=== PATIENT | male | born 1945 | race Caucasian/White ===

== ENCOUNTER → 2023-12-18 12:52 | Outpatient (CLI) | payer MEDICARE, SELFPAY ==
--- NOTE | 2023-12-18 12:57 | DI.CT.S_ITS ---
PROCEDURE: CT SINUS SCREEN WO CON INDICATIONS: CHRONIC PANSINUSITIS,FACIAL PAIN,HX SINUS SURGERY TECHNIQUE: Noncontrast 3.0 mm axial images acquired from the frontal sinuses to the mid-sella, with coronal and sagittal reformats. For radiation dose reduction, the following was used: automated exposure control, adjustment of mA and/or kV according to patient size. COMPARISON: None. FINDINGS: Image quality: Excellent. Maxillary Sinuses: Mild mucosal thickening is seen inferiorly, right worse than left. There is removal of portions of the superior medial quach of the maxillary sinuses. Ethmoid Air Cells: No bony remodeling or destruction. Mild mucosal thickening is seen anteriorly. Sphenoid Sinuses: No bony remodeling or destruction. Sinuses are clear. Frontal Sinuses: No bony remodeling or destruction. Mild mucosal thickening can be seen within the inferior medial frontal sinuses. Ostiomeatal Complexes: Removed. Miscellaneous: Visualized intra-orbital contents are normal. There are small bilateral em bullosa. No nasal septal deviation. IMPRESSION: Scattered mild paranasal sinus disease can be seen. Prior postoperative change, with bilateral antrectomy. Dictated by: Willem Garcai M.D. on 12/18/2023 at 14:18 Approved by: Willem Garcia M.D. on 12/18/2023 at 14:20
== END ==
LOC: CT 12:55
PROVIDERS: Referring Provider Otolaryngology; Visit Provider Otolaryngology
DX: J32.4 Chronic pansinusitis (principal); R51.9 Headache, unspecified; J34.3 Hypertrophy of nasal turbinates; Z98.890 Other specified postprocedural states
CPT/HCPCS: 70486

== ENCOUNTER 2024-04-10 06:45 | Day surgery (SDC) | payer MEDICARE, SELFPAY ==
--- NOTE | 2024-04-10 | PATH_ITS ---
[facility] Accession Number: [id number] No. of containers..01 Tissue . 01 Material submitted: . stomach - ANTRUM . 01 Diagnosis: ANTRUM: Gastric antral mucosa with no diagnostic alterations. No Helicobacter organisms identified on H/E stain. No intestinal metaplasia, dysplasia, or malignancy identified. [facility] 04/11/20241320 Local . 01 Electronically signed: . Chuckie Quintero MD, Pathologist NPI- [id number] . 01 Gross description: . ANTRUM: Received in formalin are 4 fragment(s) of piper, soft tissue measuring 0.2 x 0.2 x 0.2 cm to 0.4 x 0.2 x 0.2 cm submitted entirely in 1 cassette(s) /VY 04/11/20241320 Local . 01 Pathologist provided ICD-10: R10.9 . 01 CPT . 516318 Specimen Comment: A courtesy copy of this report has been sent to [phone] Performed at: [address] [id number] MD Chuckie Quintero MD Phone: [phone]
[2024-04-10] MEDS: LACTATED RINGERS 1,000 ML 42 ML IV (06:56)
[2024-04-10 06:58] VITALS: BP 153/84; PULSE 61; RESP 20; TEMP 37; O2SAT 98
--- NOTE | 2024-04-10 07:45 | PM.HP.IH.1 ---
History of Present Illness History of Present Illness Date Patient Seen: 04/10/24 Time Patient Seen: 07:45 Chief complaint: EGD/Colonoscopy Narrative: Frederick Is a 78-year-old man with abdominal pain who presents for an EGD and colonoscopy. See the office note from February for details. [facility] Medical History (Updated 02/27/24 @ 14:10 by Kyle Acevedo MD) History of diverticulitis Social History Smoking Status: Never smoker Meds Home Medications and Allergies Home Medications Medication Instructions Recorded Confirmed Type aspirin 81 mg tablet,delayed 81 mg PO DAILY 02/27/24 04/10/24 History release atorvastatin 10 mg tablet 10 mg PO DAILY 02/27/24 04/10/24 History lisinopril 10 mg tablet 10 mg PO DAILY 02/27/24 04/10/24 History loratadine 5 mg-pseudoephedrine ER 1 tab PO Q12H 02/27/24 02/27/24 History 120 mg tablet,extended release,12hr ondansetron 4 mg disintegrating 4 mg PO Q6H PRN 02/27/24 02/27/24 History tablet potassium chloride 20 mEq 20 meq PO DAILY 02/27/24 02/27/24 History tablet,extended release sodium,potassium,mag sulfates 17.5 See Rx Instructions PO .COMPLEX 03/03/24 Rx gram-3.13 gram-1.6 gram oral soln #354 mL (Suprep Bowel Prep Kit) Allergies Allergy/AdvReac Type Severity Reaction Status Date / Time Sulfa (Sulfonamide Allergy Verified 04/10/24 06:57 Antibiotics) Exam Vital Signs (past 8 hours): - 04/10/24 06:58 Temperature 98.6 F Pulse Rate 61 Respiratory Rate 20 Blood Pressure 153/84 H Pulse Oximetry 98 Oxygen Delivery Method Room Air Oxygen Delivery Method Room Air Const General: healthy appearing Assessment & Plan Assessment and plan (1) Abdominal pain: Qualifiers: Abdominal location: periumbilical Qualified Code(s): R10.33 - Periumbilical pain Status: Acute Plan EGD and colonoscopy Time-Based Coding :: [TOTAL MINUTES] spent with patient and on the chart (including review of chart, obtaining history, exam, reviewing outside data, placing orders, documenting exam and treatment plan, and counseling patient) on [DATE]. PROFEE Client Reporting Associate Document charge(s): No
[2024-04-10 08:25] VITALS: BP 131/60; PULSE 55; RESP 14; TEMP 36.2; O2SAT 95
--- NOTE | 2024-04-10 08:29 | PM.OP.EC ---
Operative Date/Time/Diagnoses Date of procedure: 04/10/24 Time of procedure: 08:29 Pre-op diagnosis: Abdominal pain Post-op diagnosis: same Procedure & Clinicians Study performed: EGD and colonoscopy Same procedure as scheduled: Yes Surgeon: Kyle Acevedo Procedure Notes Procedure in detail: Surgeon: Kyle Acevedo MD Anesthesia: Janae Marroquin DO Procedure in detail: A timeout was performed. A bite blocked was placed and monitors were attached to the patient. The patient was positioned in the left lateral decubitus position. Sedation was administered. Once the patient was sedated the endoscope was inserted through the bite block and passed through the esophagus and stomach and into the duodenum. The duodenum appeared normal. We then withdrew the scope into the stomach. There was some mild antritis right at pylorus and random biopsies were taken with standard cold forceps. The rest of the stomach appeared grossly normal. The endoscope was retroflexed and no hiatal hernia was noted. The endoscope was straightned and withdrawn into the esophagus. No other abnormalities were found. EGD findings: Distal antritis Next we repositioned the patient for a colonoscopy. A digital rectal exam was performed and was normal. The colonoscope was inserted and advanced to the cecum. The appendiceal orifice was identified and photographed. The terminal ileum was intubated and no abnormalities were seen. The scope was slowly withdrawn over greater than 6 minutes. No polyps or other abnormalities were identified. The scope was retroflexed in the rectum and no significant abnormalities were seen. Colonoscopy findings: Normal colon Total procedural EBL: 5 mL Scope withdrawal time: 10 minutes Sedation minutes: 28 minutes Post-procedure Disposition: PACU
[2024-04-10 08:30] VITALS: BP 120/86; PULSE 54; RESP 14; O2SAT 95
[2024-04-10 08:37] VITALS: BP 128/66; PULSE 51; RESP 15; TEMP 36.2; O2SAT 96
[2024-04-10 08:40] VITALS: BP 141/74; PULSE 53; RESP 17; TEMP 36.2; O2SAT 94
== END 2024-04-10 09:01 | disposition home or self-care (01) ==
PROVIDERS: Referring Provider Surgery; Visit Provider Surgery
PROC: 0DJ08ZZ Inspection of Upper Intestinal Tract, Via Natural or Artificial Opening Endoscopic (ICD-10-PCS; CPT 43239; principal; 2024-04-10 07:45)
PROC: 0DJD8ZZ Inspection of Lower Intestinal Tract, Via Natural or Artificial Opening Endoscopic (ICD-10-PCS; CPT 45378; 2024-04-10 07:45)
DX: R10.9 Unspecified abdominal pain (principal); K29.50 Unspecified chronic gastritis without bleeding; Z87.19 Personal history of other diseases of the digestive system
CPT/HCPCS: 43239; 45378; J2704

== ENCOUNTER 2024-07-16 13:49 | Day surgery (SDC) | payer MEDICARE, SELFPAY ==
[2024-07-08 15:12] VITALS: BMI 28.5
[2024-07-16] VITALS (7 sets, daily range): BP systolic 151–162; BP diastolic 77–85; PULSE 15–86; RESP 14–76; TEMP 36.3–36.6; O2SAT 94–98; BMI 28.5
--- NOTE | 2024-07-16 14:26 | PM.PREOP ---
Pre-operative Note COVID-19 COVID-19 status: Not tested Interval Note History & Physical reviewed/Exam performed by Physician: Yes Changes to H&P: No ASA Class (for procedural sedation): II
[2024-07-16] MEDS: LACTATED RINGERS 1,000 ML 42 ML IV (14:37)
[2024-07-16] MEDS: ACETAMINOPHEN IV 1,000 MG/100 ML VIAL 400 MG IV (14:42)
[2024-07-16] MEDS: CEFAZOLIN 2 GM/100 ML PREMIX 100 ML IV (14:50)
--- NOTE | 2024-07-16 14:55 | SUR.OPER ---
Supine on padded OR bed, head on pillow, arms secured on padded arm boards at <90 degrees abduction, legs uncrossed, safety belt at thigh, tape over blanket over lower legs.
[2024-07-16] MEDS: BUPIVACAINE 0.5% W/ EPI (PF) 30 ML VIAL INJ (15:06)
--- NOTE | 2024-07-16 15:34 | P.OP_ITS ---
Operative Date/Time/Diagnoses Date of procedure: 07/16/24 Time of procedure: 15:34 Pre-op diagnosis: Umbilical hernia Post-op diagnosis: same Procedure & Clinicians Procedure: Open umbilical hernia repair with mesh Same procedure as scheduled: Yes Surgeon: Kyle Acevedo Home Assessment Nurse: Rupesh Maciel Anesthesia Type: General Operative Notes Findings: 2 cm cm defect Estimated Blood Loss (mL): 5 Procedure in detail: Ancef was administered. The patient was brought to the operating room, placed on the table in the supine position and general anesthesia was induced. The abdomen was prepped and draped in the usual fashion. A time-out was performed. A 4 cm curvilinear incision was made inferior to the umbilicus. The hernia sac was dissected off the umbilical stalk and from the surrounding subcutaneous adipose tissue. The sac was dissected off the umbilical stalk using a combination of cautery, sharp and blunt dissection. The hernia sac was dissected free from the fascial ring and allowed to drop back down into the abdomen. The fascial defect was approximately 2 cm across. The fascia was then closed transversely with multiple interrupted 0 Ethibond sutures. The subcutaneous adipose tissue was cleared off of the anterior sheath circumferentially about 2 cm in each direction. A piece of polypropylene mesh was trimmed to fit over the fascial closure and secured with Tisseel. Once the Tisseel was dried the umbilical skin was tacked down to the mesh with a single 3-0 Vicryl stitch. The skin was closed with multiple interrupted 3-0 Vicryl dermal sutures followed by a running 4 Monocryl subcuticular closure. Steri-Strips were applied and an abdominal binder was applied. EBL: 5 mL Rupesh KUMARI provided assistance with exposure, retraction and closure of incisions. Complications: none Post-operative Condition: stable Disposition: PACU
[2024-07-16] MEDS: KETOROLAC 30 MG/ML VIAL 15 MG IV (16:07)
== END 2024-07-16 16:44 | disposition home or self-care (01) ==
PROVIDERS: PCP Family Medicine; Referring Provider Surgery; Visit Provider Surgery
PROC: (CPT 49591; principal; 2024-07-16 15:15)
DX: K42.9 Umbilical hernia without obstruction or gangrene (principal)
CPT/HCPCS: 49591; C1781; C9250; J0131; J0690; J1885; J2704